=== PATIENT | female | born 2000 | race Two or more races ===

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

== ENCOUNTER 2020-08-12 22:04 | Emergency (ER) | payer OTHER ==
--- NOTE | 2020-08-13 00:02 | EDM.PDOC ---
ED HPI GENERAL MEDICAL PROBLEM - General Chief Complaint: Chest Pain Stated Complaint: COVID + CHEST PAIN Time Seen by Provider: 08/12/20 23:52 - History of Present Illness INITIAL COMMENTS - FREE TEXT/NARRATIVE: 20-year-old female presents the emergency room with chest pain. Patient is Covid positive she was diagnosed on Friday. Now 4 days ago. The chest Pain continues it is not necessarily getting any worse. The patient does suffer from underlying asthma but this is not seeming to bother her at this point. Patient does not have any gastrointestinal symptoms. 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 Does not smoke and is otherwise in good health. Her chest pain is not aggravated with deep inspiration and she really has a hard time describing it she is just a little concerned that it has not improved yet. 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 Psychiatric History: Reports: Depression - Infectious Disease History Infectious Disease History: Reports: Novel Coronavirus Social & Family History - Tobacco Use Tobacco Use Status *Q: Never Tobacco User Second Hand Smoke Exposure: No - Caffeine Use Caffeine Use: Reports: Coffee, Energy Drinks, Soda, Tea - Recreational Drug Use Recreational Drug Use: No ED ROS GENERAL - Review of Systems Review Of Systems: See Below Constitutional: Denies: Fever, Chills HEENT: Reports: No Symptoms Cardiovascular: Reports: Other (Chest discomfort that is hard to describe) GI/Abdominal: Reports: No Symptoms : Reports: No Symptoms Musculoskeletal: Reports: No Symptoms Skin: Reports: No Symptoms Neurological: Reports: No Symptoms ED EXAM, GENERAL - Physical Exam Exam: See Below Exam Limited By: No Limitations General Appearance: Alert, No Apparent Distress, Other (98% on room air vital signs otherwise stable) Eye Exam: Bilateral Eye: Normal Inspection Ears: Normal External Exam, Normal Canal, Hearing Grossly Normal, Normal TMs Nose: Normal Inspection, Normal Mucosa, No Blood Throat/Mouth: Normal Inspection, Normal Lips, Normal Teeth, Normal Gums, Normal Oropharynx, Normal Voice, No Airway Compromise Head: Atraumatic, Normocephalic Neck: Normal Inspection, Supple, Non-Tender, Full Range of Motion Respiratory/Chest: No Respiratory Distress, Lungs Clear, Normal Breath Sounds. No: Wheezing Cardiovascular: Regular Rate, Rhythm, No Edema, No Murmur GI/Abdominal: Normal Bowel Sounds, Soft, Non-Tender Course - Vital Signs Last Recorded V/S: Last Vital Signs Temp 36.8 C 08/12/20 22: Pulse 83 08/12/20 22:23 Resp 20 08/12/20 22:23 BP 145/97 H 08/12/20 22:23 Pulse Ox 98 08/12/20 22:23 - Re-Assessments/Exams Free Text/Narrative Re-Assessment/Exam: 08/13/20 00:14 The patient already has a diagnosis of Covid. She is stable. I did inform her in no uncertain terms that I am very concerned about her condition and urged her to return to the emergency room if this gets worse especially if she develops worsening breathing difficulties with her underlying asthma that thus far does not seem to be aggravated by the Covid. Discussed the pros and cons of laboratory work which I do not believe will help us change a plan for her. She agrees with this I did discuss the possibility albeit remote of missing a pulmonary embolism as she is not tachycardic or tachypneic. And the patient again agrees to hold off on work-up and would not want to undergo a CTA given the potential risks with that. All that being said the patient agrees to return to the emergency room with any worsening in her of her symptoms. Departure - Departure Time of Disposition: 00:16 Disposition: Home, Self-Care 01 Clinical Impression: COVID-19 - Discharge Information Referrals: Carlos Lucas MD [Primary Care Provider] - Additional Instructions: Return to the emergency room with any questions problems or worsening symptoms. Return with any worsening of your asthma. Follow-up here in the emergency room or with your regular provider in 4 days if not starting to improve. Tylenol as needed for discomfort. Follow your isolation precautions. Give yourself at least 5 days being absolutely symptom-free without the aid of any medications before going back out to the community. Sepsis Event Note (ED) - Evaluation Sepsis Screening Result: No Definite Risk - Focused Exam Vital Signs: Vital Signs Temp Pulse Resp BP Pulse Ox 08/12/20 22:23 36.8 C 83 20 145/97 H 98
== END 2020-08-13 00:30 | disposition home or self-care (01) ==
LOC: JD.ED 22:04
DX: U07.1 COVID-19 (principal); J45.909 Unspecified asthma, uncomplicated
CPT/HCPCS: 93005; 99282; 99284-25

== ENCOUNTER 2021-03-31 22:53 | Emergency (ER) | payer OTHER ==
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
[2021-04-01 01:09] LABS: C. TRACHOMATIS BY PCR NOT DETECTED; N. GONORRHOEAE BY PCR NOT DETECTED
== END 2021-04-01 00:55 | disposition home or self-care (01) ==
LOC: JD.ED 22:53
DX: T76.21XA Adult sexual abuse, suspected, initial encounter (principal); Z86.16 Personal history of COVID-19
CPT/HCPCS: 80306; 81001; 81025; 87491; 87591; 99283; 99284

== ENCOUNTER 2022-07-20 20:02 | Emergency (ER) | payer OTHER ==
[2022-07-20] MEDS ORDERED: Albuterol 0.083% 2.5 MG/3 ML Neb Soln NEB ONE (21:02)
== END 2022-07-20 22:30 | disposition home or self-care (01) ==
LOC: JD.ED 20:02
DX: J32.8 Other chronic sinusitis (principal); B96.89 Other specified bacterial agents as the cause of diseases classified elsewhere; Z86.16 Personal history of COVID-19
CPT/HCPCS: 36415; 71046; 71046-26; 80053; 84703; 85025; 86140; 94640; 99284

== ENCOUNTER 2022-08-16 00:53 | Emergency (ER) | payer OTHER ==
[2022-08-16] MEDS ORDERED: Albuterol/Ipratropium 3.0-0.5 MG/3 ML Neb Soln NEB ONE (01:28)
[2022-08-16] MEDS ORDERED: Albuterol 0.083% 2.5 MG/3 ML Neb Soln NEB ONE (01:55)
== END 2022-08-16 03:34 | disposition home or self-care (01) ==
LOC: JD.ED 00:53
DX: J45.901 Unspecified asthma with (acute) exacerbation (principal); E66.9 Obesity, unspecified; Z68.38 Body mass index [BMI] 38.0-38.9, adult; Z86.16 Personal history of COVID-19
CPT/HCPCS: 94640; 99283; J7620-GY

== ENCOUNTER 2025-08-03 15:56 | Emergency (ER) | payer SELFPAY ==
[2025-08-03 16:41] LABS: BASOPHILS ABSOLUTE AUTO 0.1 K/mm3 (0.0-0.2); BASOPHILS PERCENT AUTO 0.9 % (0.0-1.0); EOSINOPHILS ABSOLUTE AUTO 0.3 K/mm3 (0.0-0.4); EOSINOPHILS PERCENT AUTO 2.5 % (0.0-6.0); IMMATURE GRAN ABSOLUTE AUTO 0.05 K/mm3 (0.00-0.05); IMMATURE GRAN PERCENT AUTO 0.4 % (0.0-0.4); LYMPHOCYTES ABSOLUTE AUTO 3.3 K/mm3 (1.0-4.8); LYMPHOCYTES PERCENT AUTO 28.5 % (24.0-44.0); MEAN PLATELET VOLUME 9.1 fl (9.4-12.3); MONOCYTES ABSOLUTE AUTO 0.7 K/mm3 (0.0-0.8); MONOCYTES PERCENT AUTO 6.1 % (0.0-8.0); NEUTROPHILS ABSOLUTE AUTO 7.0 K/mm3 (1.8-7.7); NEUTROPHILS PERCENT AUTO 61.6 % (41.0-71.0); NRBC ABSOLUTE 0.00 (0.00-0.02); NRBC PERCENT 0.0 % (0.0-0.2); PLATELET COUNT,PLT 324 K/mm3 (150-400); RED BLOOD CELL COUNT 5.05 M/mm3 (4.10-5.30); WHITE BLOOD CELL COUNT,WBC 11.42 K/mm3 (3.9-11.3)
[2025-08-03] MEDS: Sodium Chloride 0.9% 10 ML Syringe FLUSH ONE (16:46)
[2025-08-03 16:58] LABS: GLUCOSE,URINE NEGATIVE (Negative); OCCULT BLOOD,URINE 3+ (Negative)
[2025-08-03 16:59] LABS: APPEARANCE,URINE SLT CLOUDY (Clear)
[2025-08-03 17:04] LABS: A/G RATIO 1.1 (1-2); ALANINE AMINOTRANSFERASE,ALT 43.0 U/L (14-59); ASPARTATE AMNIOTRANSFERASE,AST 19.0 U/L (15-37); BILIRUBIN TOTAL 0.5 mg/dL (0.2-1.0); BLOOD UREA NITROGEN,BUN 14.0 mg/dL (7-18); CARBON DIOXIDE,CO2 23.0 mEq/L (21-32); CHLORIDE,CL 107.0 mEq/L (98-107); CREATININE 1.0 mg/dL (0.55-1.02); EST CRCL DRUG DOSING (CG) 76.71 mL/min; ESTIMATED GFR 80.0 mL/min (>60); GLUCOSE RANDOM 111.0 mg/dL (70-99); POTASSIUM,K 3.9 mEq/L (3.5-5.1); PROTEIN TOTAL,TP 7.9 g/dl (6.4-8.2); SODIUM,NA 141.0 mEq/L (136-145)
[2025-08-03 17:09] LABS: EPITHELIAL CELLS,URINE 0-5 /hpf (0-5)
[2025-08-03] MEDS: Ketorolac 15 MG/ML SDV IVPUSH ONE (17:20)
[2025-08-03] MEDS: Iopamidol 612 MG/ML 100 ML Bottle IVPUSH ONE (17:36)
[2025-08-03] MEDS: Sodium Chloride 0.9% 10 ML Syringe FLUSH PRN (17:36)
== END 2025-08-03 19:13 | disposition home or self-care (01) ==
LOC: JD.ED 15:56
DX: N13.2 Hydronephrosis with renal and ureteral calculous obstruction (principal); E66.9 Obesity, unspecified; Z79.899 Other long term (current) drug therapy; Z68.38 Body mass index [BMI] 38.0-38.9, adult
CPT/HCPCS: 36415; 74177; 80053; 81001; 83690; 84703; 85025; 96374; 99284; J1885; J7030; Q9967